=== PATIENT | male | born 1980 | race Native Hawaiian/Other Pacific Islander ===

== ENCOUNTER 2022-03-27 15:48 | Emergency (ER) | payer BC ==
[~2022-03-27] VITALS: Ht 175.3 cm; Wt 102.1 kg
[2022-03-27 16:01] VITALS: TEMP 98.2
[2022-03-27 17:33] VITALS: BP 150/88
== END 2022-03-27 17:37 | disposition home or self-care (01) ==
LOC: ED 15:48
PROC: 0HQBXZZ Repair Right Upper Arm Skin, External Approach (ICD-10-PCS; principal; 2022-03-27)
DX: S51.812A Laceration without foreign body of left forearm, initial encounter (principal); W26.0XXA Contact with knife, initial encounter; Y93.89 Activity, other specified; Y92.89 Other specified places as the place of occurrence of the external cause; Z23 Encounter for immunization
CPT/HCPCS: 90471; 90715; 96372; 99283; J0696; J7040